=== PATIENT | female | born 1955 | race Caucasian/White ===

== ENCOUNTER 2019-03-30 12:11 | Emergency (ER) | payer BC ==
[2019-03-30 12:33] VITALS: BP 147/97
[2019-03-30] MEDS ORDERED: ORPHENADRINE CITRATE 60 MG/2 ML VIAL. IM ONE (12:45)
[2019-03-30] MEDS ORDERED: IBUPROFEN 400 MG TABLET. PO ONE (12:45)
[2019-03-30] MEDS ORDERED: DEXAMETHASONE 4 MG TABLET PO ONE (12:45)
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
[2019-03-30] MEDS ORDERED: ORPH-16 PO (13:47)
[2019-03-30] MEDS ORDERED: HYDR-3165 PO (13:47)
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
[2019-03-30] MEDS ORDERED: HYDROcodone/APAP 5/325MG 1 TAB TABLET PO ONE (14:15)
== END 2019-03-30 13:54 | disposition home or self-care (01) ==
LOC: ER 12:11
DX: S80.01XA Contusion of right knee, initial encounter (principal); M54.5 Low back pain; M54.12 Radiculopathy, cervical region; R51 Headache; R20.0 Anesthesia of skin; E78.00 Pure hypercholesterolemia, unspecified; Z90.710 Acquired absence of both cervix and uterus; Z88.0 Allergy status to penicillin; Z88.5 Allergy status to narcotic agent; V89.2XXA Person injured in unspecified motor-vehicle accident, traffic, initial encounter; Y93.89 Activity, other specified; Y92.488 Other paved roadways as the place of occurrence of the external cause; Y99.8 Other external cause status
CPT/HCPCS: 70450; 71046; 72125; 96372; 99284; J2360; J8540